=== PATIENT | female | born 2000 | race Caucasian/White ===

== ENCOUNTER 2019-07-25 04:03 | Emergency (ER) | payer OTHER ==
[~2019-07-25] VITALS: Ht 157.5 cm; Wt 63.2 kg
[~2019-07-25 04:03] MED LIST: BACTDS PO; CEPH-443 PO; IBUP-1561 PO
[2019-07-25 04:08] VITALS: BP 117/71; PULSE 86; RESP 16; Ht 157.5 cm; Wt 63.2 kg
[2019-07-25] MEDS ORDERED: DIPHENHYDRAMINE 25 MG CAP PO ONE (05:00)
== END 2019-07-25 05:22 | disposition home or self-care (01) ==
LOC: FTE 04:03
DX: R06.02 Shortness of breath (principal); F41.9 Anxiety disorder, unspecified
CPT/HCPCS: 81003; 81025; Z7502; Z7610; 99282